=== PATIENT | male | born 1990 | race Two or more races ===

== ENCOUNTER 2017-01-27 12:35 | Emergency (ER) | payer OTHER ==
[2017-01-27 12:40] VITALS: BP 131/87; PULSE 88; TEMP 98.2; BMI 32.5
[2017-01-27] MEDS ORDERED: ACETAMINOPHEN 1000 MG/100 ML VIAL (NON FORMULARY) IVPB ONE (12:49)
[2017-01-27] MEDS ORDERED: SODIUM CHLORIDE 1,000 ML IV STA (12:49)
[2017-01-27] MEDS ORDERED: METOCLOPRAMIDE HCL INJECTION 10 MG/2 ML VIAL IVPB ONE (12:49)
--- NOTE | 2017-01-27 12:53 | PDOC ---
History of Present Illness - General Chief Complaint: Headache Stated Complaint: HEAD PRESSURE & LIGHT HEADED Time Seen by Provider: 01/27/17 12:36 History Source: Patient Exam Limitations: No Limitations - History of Present Illness Initial Comments: 01/27/17 12:50 26-year-old male with past medical history of migraines presents to the emergency department for headache and lightheadedness. The patient reports feeling tired and fatigued since yesterday and woke up this morning with a gradual tension-like headache particular worsen the posterior. Denies fevers, neck stiffness or pain. Stated headache gradually worsened but is constant. States the difference between this was that he has no photophobia which she typically has with his migraines. Reports some nausea but denies vomiting. Denies any numbness or weakness or gait instability. Patient as of note notices that in the last several episodes this year, patient has had hypoglycemia with his glucose were good on the 50s. However, patient reports good appetite and denies taking any diabetes medications. He denies history of diabetes. His outpatient doctor is aware of it and is following as an outpatient. Past History - Past Medical History Allergies/Adverse Reactions: Allergies Allergy/AdvReac Type Severity Reaction Status Date / Time Cephalosporins Allergy Severe unknown Verified 02/16/15 12:43 Penicillins Allergy Severe unknown Verified 02/16/15 12:43 Home Medications: Ambulatory Orders Acetaminophen [Tylenol] 650 mg PO Q4H PRN #20 tablet 01/27/17 Metoclopramide HCl [Reglan] 10 mg PO Q8H PRN #20 tablet 01/27/17 Asthma: Yes Hypercholesterolemia: Yes (not on meds) - Immunization History Immunization Up to Date: Yes - Suicide/Smoking/Psychosocial Hx Smoking History: Never smoked Have you smoked in the past 12 months: No Hx Alcohol Use: No Drug/Substance Use Hx: No Substance Use Type: None Hx Substance Use Treatment: No Review of Systems - Review of Systems Able to Perform ROS?: Yes Comments:: 01/27/17 12:51 GENERAL/CONSTITUTIONAL: No fever, weakness. HEAD, EYES, EARS, NOSE AND THROAT: No change in vision. No ear pain or discharge. No sore throat. CARDIOVASCULAR: No chest pain or shortness of breath. RESPIRATORY: No cough, wheezing, or hemoptysis. GASTROINTESTINAL: No abdominal pain, nausea, vomiting, diarrhea, or decreased PO intolerance. GENITOURINARY: No dysuria, frequency, or change in urination. MUSCULOSKELETAL: No joint or muscle swelling or pain. No neck or back pain. SKIN: No rash NEUROLOGIC: +headache, nausea. No vertigo, loss of consciousness, or change in strength/sensation. ENDOCRINE: No increased thirst. No abnormal weight change. HEMATOLOGIC/LYMPHATIC: No anemia, easy bleeding, or history of blood clots. ALLERGIC/IMMUNOLOGIC: No hives or skin allergy. *Physical Exam - Vital Signs Last Vital Signs Temp Pulse Resp BP Pulse Ox 98.2 F 88 15 131/87 98 01/27/17 12:36 01/27/17 12:36 01/27/17 12:36 01/27/17 12:36 01/27/17 12:36 - Physical Exam Comments: 01/27/17 12:51 GENERAL: Awake, alert, and fully oriented, in no acute distress. HEAD: No signs of trauma EYES: PERRLA, EOMI, sclera anicteric, conjunctiva clear ENT: Auricles normal inspection, hearing grossly normal, nares patent, oropharynx clear without exudates. NECK: Normal ROM, supple, no lymphadenopathy, JVD, or masses LUNGS: Breath sounds equal, clear to auscultation bilaterally. No wheezes, and no crackles HEART: Regular rate and rhythm, normal S1 and S2, no murmurs, rubs or gallops ABDOMEN: Soft, nontender, normoactive bowel sounds. No guarding, no rebound. No masses EXTREMITIES: Normal range of motion, no edema. No clubbing or cyanosis. No cords, erythema, or tenderness NEUROLOGICAL: Cranial nerves II through XII intact. Normal speech, normal gait. 5/5 strength upper and lower extremities. sensation intact throughout. FTN WNL. No dysmetria. SKIN: Warm, Dry, normal turgor, no rashes or lesions noted. ED Treatment Course - LABORATORY CBC & Chemistry Diagram: 01/27/17 12:50 01/27/17 12:50 Medical Decision Making - Medical Decision Making 01/27/17 12:53 Vital Signs Temp Pulse Resp BP Pulse Ox 98.2 F 88 15 131/87 98 01/27/17 12:36 01/27/17 12:36 01/27/17 12:36 01/27/17 12:36 01/27/17 12:36 I suspect the patient's headache is likely secondary to migraine. I do not suspect meningitis or SAH at this time. Last migraine episode was 1 month ago. However, given the episodes of hypoglycemia, we'll check some blood work including glucose. Treat symptoms and reassess. 01/27/17 14:04 CBC, BMP 01/27/17 12:50 01/27/17 12:50 CMP Sodium 134 mmol/L (136-145) L 01/27/17 12:50 Potassium 3.9 mmol/L (3.5-5.1) 01/27/17 12:50 Chloride 101 mmol/L (98-107) 01/27/17 12:50 Carbon Dioxide 24 mmol/L (22-28) 01/27/17 12:50 Anion Gap 9 (8-16) 01/27/17 12:50 BUN 10 mg/dl (7-18) 01/27/17 12:50 Creatinine 0.9 mg/dl (0.6-1.3) 01/27/17 12:50 Creat Clearance w eGFR > 60 (>60) 01/27/17 12:50 Random Glucose 83 mg/dl (74-106) 01/27/17 12:50 Calcium 10.4 mg/dl (8.4-10.2) H 01/27/17 12:50 Total Bilirubin 0.7 mg/dl (0.2-1.0) 01/27/17 12:50 AST 34 U/L (10-42) 01/27/17 12:50 ALT 38 U/L (10-40) 01/27/17 12:50 Alkaline Phosphatase 42 U/L (32-92) 01/27/17 12:50 Total Protein 8.2 g/dl (6.4-8.3) 01/27/17 12:50 Albumin 5.6 g/dl (3.5-5.0) H 01/27/17 12:50 Labs reviewed. No acute findings. After IV tylenol and IV reglan, the headache resolved. Likely migraines. Will have patient discharged and follow up with his PMD and neurology. Return precautions given. I discussed the physical exam findings, ancillary test results and final diagnoses with the patient. I answered all of the patient's questions. The patient was satisfied with the care received and felt comfortable with the discharge plan and treatment plan. The patient will call their primary care physician within 24 hours to arrange follow-up and will return to the Emergency Department with any new, persistant or worsening symptoms. *DC/Admit/Observation/Transfer Diagnosis at time of Disposition: Migraine Qualifiers: Migraine type: unspecified Status migrainosus presence: without status migrainosus Intractability: not intractable Qualified Code(s): G43.909 - Migraine, unspecified, not intractable, without status migrainosus - Discharge Dispostion Disposition: HOME Condition at time of disposition: Good Admit: No - Prescriptions Prescriptions: Metoclopramide HCl [Reglan] 10 mg PO Q8H PRN #20 tablet PRN Reason: Nausea/Migraine Acetaminophen [Tylenol] 650 mg PO Q4H PRN #20 tablet PRN Reason: Headache - Referrals Referrals: Bud Lamb MD [Primary Care Provider] - Deniz Mcconnell MD [Staff Physician] - - Patient Instructions Printed Discharge Instructions: DI for Migraine Additional Instructions: Take 650 mg tylenol every 4 hours as needed for headache. For additional relief, take a tablet of reglan every 8 hours as needed. This can also help with nausea. Please drink plenty of fluids and rest. Follow up with your doctor.
[2017-01-27] MEDS ORDERED: ACETAMINOPHEN INJECTION 100 ML IVPB ONE (12:59)
[2017-01-27 13:27] LABS: BASOPHIL 0.7 % (0-2.0); MCHC 34.4 g/dl (32.0-35.9); MEAN CELL VOLUME 84.5 fl (80-96); MEAN PLT VOLUME 8.7 fl (7.5-11.1); NEUTROPHILS 75.5 % (42.8-82.8); PLATELET COUNT 281 K/MM3 (134-434); RDW 12.2 % (11.9-15.9); WHITE BLOOD COUNT 10.3 K/mm3 (4.0-10.8)
[2017-01-27 13:48] LABS: ALBUMIN 5.6 g/dl (3.5-5.0); ALK PHOS 42 U/L (32-92); ANION GAP 9 (8-16); BILIRUBIN,TOTAL 0.7 mg/dl (0.2-1.0); CALCIUM 10.4 mg/dl (8.4-10.2); CO2 24 mmol/L (22-28); CREATININE 0.9 mg/dl (0.6-1.3); GLUCOSE,RANDOM 83 mg/dl (74-106); SGOT/AST 34 U/L (10-42); SGPT/ALT 38 U/L (10-40); TOT PROT 8.2 g/dl (6.4-8.3)
== END 2017-01-27 14:13 | disposition home or self-care (01) ==
LOC: FER 12:35 → SUPCPDRO 12:35 → FER 14:13
PROC: 3E033NZ Introduction of Analgesics, Hypnotics, Sedatives into Peripheral Vein, Percutaneous Approach (ICD-10-PCS; principal; 2017-01-27)
PROC: 3E033GC Introduction of Other Therapeutic Substance into Peripheral Vein, Percutaneous Approach (ICD-10-PCS; 2017-01-27)
PROC: 3E0337Z Introduction of Electrolytic and Water Balance Substance into Peripheral Vein, Percutaneous Approach (ICD-10-PCS; 2017-01-27)
DX: G43.909 Migraine, unspecified, not intractable, without status migrainosus (principal)
CPT/HCPCS: 36415; 80053; 85025; 99283-25

== ENCOUNTER 2017-09-16 07:41 | Emergency (ER) | payer BC, OTHER ==
[2017-09-16] MEDS ORDERED: IBUPROFEN 600 MG TABLET (FP) PO ONE (07:43)
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
[2017-09-16 07:46] VITALS: BP 139/95; PULSE 76; TEMP 98.2; BMI 32.5
== END 2017-09-16 08:49 | disposition home or self-care (01) ==
LOC: FER 07:41
DX: S93.401A Sprain of unspecified ligament of right ankle, initial encounter (principal); M25.532 Pain in left wrist; X58.XXXA Exposure to other specified factors, initial encounter; Y93.89 Activity, other specified; Y92.9 Unspecified place or not applicable
CPT/HCPCS: 73110-TC-LR-FY; 73610-TC-RT-FY; 73630-TC-RT-FY; 99282-25

== ENCOUNTER 2017-11-24 08:16 | Emergency (ER) | payer BC ==
[2017-11-24 08:31] VITALS: BMI 33.3
--- NOTE | 2017-11-24 08:53 | PDOC ---
Attending Attestation - Resident Resident Name: Robyn Ha - ED Attending Attestation I have performed the following: I have examined & evaluated the patient, The case was reviewed & discussed with the resident, I agree w/resident's findings & plan, Exceptions are as noted - HPI HPI: 11/24/17 08:52 27 yo M c/ past medical hx tension headache. The patient was as playing soccer and turned his left of head suddenly to head butt a ball. He had felt a "popping" sensation and soon felt some mild numbness of the right side of face. [place] some mildly dizzy. But never endorsed chest pain, SOB, or any upper or lower extremities numbness/ weakness. Came into the ER for an evaluation. - Physicial Exam PE: 11/24/17 09:51 Vital Signs Temp Pulse Resp BP Pulse Ox 98.0 F 84 16 127/74 96 11/24/17 08:29 11/24/17 08:29 11/24/17 08:29 11/24/17 08:29 11/24/17 08:29 GENERAL: Awake, alert, and fully oriented, in no acute distress HEAD: No signs of trauma EYES: PERRLA, EOMI, sclera anicteric, conjunctiva clear ENT: Auricles normal inspection, hearing grossly normal, nares patent, NECK: Normal ROM, supple. No c-spine tenderness. LUNGS: Breath sounds equal, clear to auscultation bilaterally. No wheezes, and no crackles HEART: Regular rate and rhythm, normal S1 and S2, no murmurs, rubs or gallops EXTREMITIES: Normal range of motion, no edema. No clubbing or cyanosis. No cords, erythema, or tenderness NEUROLOGICAL: Cranial nerves II through XII intact. 5/5 strength upper and lower extremities. no pronator drift. no dysmetria, no dysarthria. Rapid alternating normal. Heel to vazquez normal. SKIN: Warm, Dry, normal turgor, no rashes or lesions noted. - Medical Decision Making 11/24/17 09:53 27 year old male presents with dizziness after neck pain. Differential includes vertebral dissection, c-spine injury, neck spasm, musculoskeletal pain. I agree with plan for head CT, c-spine and CTA neck. Pain control and reassess. 11/24/17 10:48 CBC, BMP 11/24/17 09:00 11/24/17 09:00 CMP Sodium 137 mmol/L (136-145) 11/24/17 09:00 Potassium 4.5 mmol/L (3.5-5.1) 11/24/17 09:00 Chloride 104 mmol/L (98-107) 11/24/17 09:00 Carbon Dioxide 28 mmol/L (21-32) 11/24/17 09:00 Anion Gap 5 (8-16) L 11/24/17 09:00 BUN 15 mg/dL (7-18) 11/24/17 09:00 Creatinine 1.0 mg/dL (0.7-1.3) 11/24/17 09:00 Creat Clearance w eGFR > 60 (>60) 11/24/17 09:00 Random Glucose 84 mg/dL (74-106) 11/24/17 09:00 Calcium 9.4 mg/dL (8.5-10.1) 11/24/17 09:00 Total Bilirubin 0.5 mg/dL (0.2-1.0) 11/24/17 09:00 AST 57 U/L (15-37) H D 11/24/17 09:00 ALT 119 U/L (12-78) H D 11/24/17 09:00 Alkaline Phosphatase 56 U/L (45-117) 11/24/17 09:00 Total Protein 7.5 g/dl (6.4-8.2) 11/24/17 09:00 Albumin 4.5 g/dl (3.4-5.0) 11/24/17 09:00 11/24/17 13:36 CT head and C-spine negative for acute findings. CTA negative for acute findings. Pt reports feeling better after the medications. LFTs noted. Will give a copy of the results and inform the patient to follow up with the PMD.
--- NOTE | 2017-11-24 09:02 | PDOC ---
History of Present Illness - General Chief Complaint: Weakness Stated Complaint: chest tightness/numbness Time Seen by Provider: 11/24/17 08:40 History Source: Patient - History of Present Illness Initial Comments: 11/24/17 08:55 Pt is a 27yo male with PMH of migraine/tension headaches presenting to ED with parents after he felt a "snap" in the left side of his neck while playing soccer this morning. Pt says he turned his head sharply to the left, felt the snap and felt like the right side of his face went numb. He also admitted to some dizziness and chest tightness, but the tightness has since dissipated. He is also complaining of some sinus pressure around the nose associated with congestion. He denies trauma, injury, LOC, falling down, SOB, cough weakness. He has been going to physical therapy for his neck pain that he gets when he gets headaches. PCP: Dr. Junior PMH: see HPI PSH: none Allergies: nka Social: smokes hookah. Denies alcohol, tobacco, illicit drug use. 11/24/17 11:45 Past History - Past Medical History Allergies/Adverse Reactions: Allergies Allergy/AdvReac Type Severity Reaction Status Date / Time Cephalosporins Allergy Severe unknown Verified 11/24/17 08:30 Penicillins Allergy Severe unknown Verified 11/24/17 08:30 Home Medications: Ambulatory Orders NK [No Known Home Medication] 09/16/17 Asthma: Yes COPD: No Hypercholesterolemia: Yes (not on meds) - Immunization History Immunization Up to Date: Yes - Suicide/Smoking/Psychosocial Hx Smoking History: Never smoked Have you smoked in the past 12 months: No Information on smoking cessation initiated: No Hx Alcohol Use: No Drug/Substance Use Hx: No Substance Use Type: None Hx Substance Use Treatment: No Review of Systems - Review of Systems Constitutional: No: Chills, Fever, Weakness HEENTM: Yes: Nose Congestion. No: Blurred Vision, Recent change in vision, Double Vision, Nose Bleeding Respiratory: No: Cough, Shortness of Breath, Wheezing Cardiac (ROS): Yes: Chest Tightness. No: Chest Pain, Edema, Syncope ABD/GI: No: Constipated, Diarrhea, Nausea, Vomiting, Abdominal cramping : No: Flank Pain Musculoskeletal: Yes: Neck Pain. No: Back Pain, Joint Pain, Joint Swelling, Muscle Pain, Muscle Weakness, Joint Stiffness Neurological: Yes: Numbness (R side of face), Dizziness. No: Headache, Paresthesia, Tingling, Weakness, Ataxia *Physical Exam - Vital Signs Last Vital Signs Temp Pulse Resp BP Pulse Ox 98.0 F 84 16 127/74 96 11/24/17 08:29 11/24/17 08:29 11/24/17 08:29 11/24/17 08:29 11/24/17 08:29 - Physical Exam General Appearance: Yes: Nourished. No: Apparent Distress (laying down in bed comfortably with parents at bedside) HEENT: positive: EOMI, TAN, Normal Voice, Pharynx Normal, Hearing Grossly Normal. negative: Pharyngeal Erythema, Tonsillar Exudate, Tonsillar Erythema, Hearing Decreased, Lesions, Bowser Neck: positive: Trachea midline, Supple. negative: Tender, Rigid, Carotid bruit , Decreased range of motion Respiratory/Chest: positive: Lungs Clear, Normal Breath Sounds. negative: Crackles, Rales, Rhonchi, Wheezing Cardiovascular: positive: Regular Rhythm, Regular Rate, S1, S2. negative: Edema , JVD, Murmur Vascular Pulses: Carotid (R): 2+, Carotid (L): 2+ Gastrointestinal/Abdominal: positive: Normal Bowel Sounds, Soft. negative: Tender Musculoskeletal: negative: CVA Tenderness, Decreased Range of Motion Extremity: positive: Normal Capillary Refill, Normal Range of Motion. negative : Swelling, Calf Tenderness, Erythema Integumentary: positive: Normal Color, Dry, Warm Neurologic: positive: fuel island attendant II-XII NML intact, Fully Oriented, Alert, Normal Mood/ Affect, Normal Response, Motor Strength 5/5. negative: Numbness Deep Tendon Reflexes: Knee (L): 2+, Knee (R): 2+, Bicep (L): 2+, Bicep (R): 2+ ED Treatment Course - LABORATORY CBC & Chemistry Diagram: 11/24/17 09:00 11/24/17 09:00 Medical Decision Making - Medical Decision Making 11/24/17 09:59 Patient is a 27 year old male with PMH of tension/migraine headaches presenting to ED with complaints of R side facial numbness and dizziness after turning his head sharply while playing soccer. DDX: vertebral dissection, spinal cord injury, vertebral injury/fracture, muscle sprain Because pt felt a snapping sensation and had been getting neck massages in the past month, vertebral artery dissection needed to be ruled out. On physical exam, patient had full sensation bilaterally, 5/5 motor strength, 2 + reflexes and was ambulatory; concern for spinal cord injury. CT head/cervical spine and CTA neck done to r/o vertebral artery dissection and to look for any fractures. CT head/cervical spine did not show any abnormalities or fractures and CTA did not show dissection of vertebral arteries or carotid arteries, or carotid artery stenosis. Patient was given 1L fluids and reglan/benadryl for headache. Patient reported feeling much better after medication. LFTs were slightly elevated, however pt was aware of this because he has fatty liver. Patient felt better and did not want any outpatient medications or another dose of Toradol. Patient's vitals were stable, he was not in any pain and was ambulatory. Patient and family agreed with plan to be discharged home and was given strict return precautions. Patient verbalized understanding. *DC/Admit/Observation/Transfer Diagnosis at time of Disposition: Neck and shoulder pain - Discharge Dispostion Disposition: HOME Condition at time of disposition: Improved - Referrals Referrals: Aram Junior MD [Primary Care Provider] - - Patient Instructions Printed Discharge Instructions: DI for Cervical Muscle Strain Additional Instructions: You were seen here today because you were having neck pain and numbness on the right side of your face after you turned your neck while playing soccer. We did some blood work and we did a scan of your head and neck. There is some slight abnormality in the liver enzymes, but everything else is normal. The most likely cause of your symptoms is muscle strain. I recommend that you avoid playing aggressive sports, try not to strain your neck. You can take ibuprofen for your headaches. Please follow up with your PCP about the liver function tests, the chronic headaches and any other health problems you are concerned about. Please come back to the ED if: headaches become worse, you experience severe neck pain, if you lose consciousness/pass out, if you continue to feel dizzy, or if any new concerning symptom develops. Thank you - Post Discharge Activity
[2017-11-24 09:15] LABS: BASO % 0.9 % (0-2.0); EOS % 2.8 % (0-4.5); HEMATOCRIT 40.4 % (35.4-49); HEMOGLOBIN 14.2 GM/dL (11.7-16.9); LYMPH % 23.1 % (8-40); MCHC 35.2 g/dl (32.0-35.9); MEAN CELL VOLUME 82.2 fl (80-96); MEAN PLT VOLUME 7.8 fl (7.5-11.1); MONO % 7.7 % (3.8-10.2); NEUT % 65.5 % (42.8-82.8); PLATELET COUNT 211 K/MM3 (134-434); RBC 4.91 M/mm3 (4.00-5.60); RDW 13.1 % (11.9-15.9); WHITE BLOOD COUNT 5.4 K/mm3 (4.0-10.0)
[2017-11-24] MEDS ORDERED: SODIUM CHLORIDE 1,000 ML IV STA (09:19)
[2017-11-24 09:40] LABS: ALBUMIN 4.5 g/dl (3.4-5.0); ANION GAP 5 (8-16); BILIRUBIN,TOTAL 0.5 mg/dL (0.2-1.0); BLOOD UREA NITROGEN 15 mg/dL (7-18); CALCIUM 9.4 mg/dL (8.5-10.1); CHLORIDE 104 mmol/L (98-107); CO2 28 mmol/L (21-32); GLUCOSE,RANDOM 84 mg/dL (74-106); POTASSIUM 4.5 mmol/L (3.5-5.1); SGOT/AST 57 U/L (15-37); SGPT/ALT 119 U/L (12-78); SODIUM 137 mmol/L (136-145)
[2017-11-24 09:41] LABS: ALK PHOS 56 U/L (45-117); TOT PROT 7.5 g/dl (6.4-8.2)
[2017-11-24 09:48] LABS: INR 1.17 (0.82-1.09); PROTHROMBIN TIME (PATIENT) 13.2 SEC (9.7-13.0)
[2017-11-24 09:51] LABS: ACTIVATED PTT 26.4 SECONDS (25.2-36.5)
[2017-11-24] MEDS ORDERED: ACETAMINOPHEN 1000 MG/100 ML VIAL (NON FORMULARY) IVPB ONE ×2 (09:54→10:39)
[2017-11-24] MEDS ORDERED: METOCLOPRAMIDE HCL INJECTION 10 MG/2 ML VIAL IVPUSH ONE (10:39)
[2017-11-24] MEDS ORDERED: METOCLOPRAMIDE HCL INJECTION 10 MG/2 ML VIAL ONE (10:55)
[2017-11-24] MEDS ORDERED: ACETAMINOPHEN INJECTION 100 ML IVPB ONE (10:55)
[2017-11-24] MEDS ORDERED: KETOROLAC TROMETHAMINE 30 MG/1 ML VIAL IVPUSH ONE (13:37)
[2017-11-24 14:08] VITALS: BP 127/64; PULSE 78; TEMP 98.1
--- NOTE | 2017-11-24 15:16 | EKG ---
Test Reason : Blood Pressure : / mmHG Vent. Rate : 086 BPM Atrial Rate : 086 BPM P-R Int : 190 ms QRS Dur : 098 ms QT Int : 384 ms P-R-T Axes : 026 066 015 degrees QTc Int : 459 ms NORMAL SINUS RHYTHM NORMAL ECG WHEN COMPARED WITH ECG OF 30-JUN-2013 09:51, NONSPECIFIC T WAVE ABNORMALITY NOW EVIDENT IN LATERAL LEADS Confirmed by EMILY SWEENEY, GLORIA ([id number]) on 11/24/2017 3:16:45 PM Referred By: Confirmed By:GLORIA DIAZ MD
== END 2017-11-24 14:07 | disposition home or self-care (01) ==
LOC: JER 08:16
PROC: 3E0337Z Introduction of Electrolytic and Water Balance Substance into Peripheral Vein, Percutaneous Approach (ICD-10-PCS; principal; 2017-11-24)
PROC: 3E033NZ Introduction of Analgesics, Hypnotics, Sedatives into Peripheral Vein, Percutaneous Approach (ICD-10-PCS; 2017-11-24)
PROC: 3E033GC Introduction of Other Therapeutic Substance into Peripheral Vein, Percutaneous Approach (ICD-10-PCS; 2017-11-24)
PROC: 3E033GC Introduction of Other Therapeutic Substance into Peripheral Vein, Percutaneous Approach (ICD-10-PCS; 2017-11-24)
DX: S16.1XXA Strain of muscle, fascia and tendon at neck level, initial encounter (principal); R51 Headache; X50.0XXA Overexertion from strenuous movement or load, initial encounter; Y93.66 Activity, soccer; Y92.322 Soccer field as the place of occurrence of the external cause; Y99.8 Other external cause status; E78.00 Pure hypercholesterolemia, unspecified; J45.909 Unspecified asthma, uncomplicated
CPT/HCPCS: 36415; 70450-TC; 70498-TC; 72125-TC; 80053; 85025; 85610; 85730; 86850; 86900; 86901; 93005; 93010; 99285-25; J0131; J7030

== ENCOUNTER 2018-05-15 07:40 | Emergency (ER) | payer BC ==
[2018-05-15 08:02] VITALS: BP 149/93; PULSE 76; TEMP 98.5; BMI 32.5
--- NOTE | 2018-05-15 08:29 | PDOC ---
History of Present Illness - General Chief Complaint: Pain, Acute Stated Complaint: ABDOMINAL PAIN Time Seen by Provider: 05/15/18 07:59 History Source: Patient Exam Limitations: Clinical Condition - History of Present Illness Initial Comments: 05/15/18 08:24 Patient with a past medical history of chronic constipation present with complaint of worsening epigastric and right upper quadrant pain which has been intermittent since yesterday. Patient reported he have history of abdominal pains and being followed by GI. Patient reports he had abdominal CT done a month ago by GI which only showed a fatty liver. Patient reported his pain schedule for abdominal MRI which he is waiting for insurance approval. Patient reported having endoscopy and colonoscopy done over a month ago with normal findings. Patient reported increased pain to epigastric area when he gets up from laying down. Patient denies nausea or vomiting. Patient denies any other symptoms.Patient reported last bowel movement this morning of normal caliber. Timing/Duration: 24 hours Past History - Past Medical History Allergies/Adverse Reactions: Allergies Allergy/AdvReac Type Severity Reaction Status Date / Time Cephalosporins Allergy Severe unknown Verified 05/15/18 07:58 Penicillins Allergy Severe unknown Verified 05/15/18 07:58 Home Medications: Ambulatory Orders Ibuprofen 600 mg PO Q6H PRN #30 tablet 05/05/18 Docusate Sodium [Colace] 100 mg PO BID 5 Days #10 capsule 05/15/18 Famotidine [Pepcid] 20 mg PO DAILY #10 tablet 05/15/18 Mag Hydrox/Aluminum Hyd/Simeth [Maalox Advanced Suspension] 30 ml PO Q8H PRN # 300 ml 05/15/18 Asthma: Yes COPD: No Hypercholesterolemia: Yes Liver Disease: Yes (FATTY LIVER) - Immunization History Immunization Up to Date: Yes - Suicide/Smoking/Psychosocial Hx Smoking History: Never smoked Have you smoked in the past 12 months: No Hx Alcohol Use: No Drug/Substance Use Hx: No Substance Use Type: None Hx Substance Use Treatment: No Review of Systems - Review of Systems Able to Perform ROS?: Yes Is the patient limited Mongolian proficient: No Constitutional: No: Chills, Fever HEENTM: No: Symptoms Reported Respiratory: No: Symptoms reported Cardiac (ROS): No: Symptoms Reported ABD/GI: Yes: See HPI, Constipated, Abdominal cramping (epigastric and RUQ). No : Abdominal Distended, Abd. Pain w/ defecation, Diarrhea, Difficulty Swallowing , Nausea, Poor Appetite, Poor Fluid Intake, Rectal Bleeding, Vomiting, Indigestion : No: Discharge, Frequency, Flank Pain, Hematuria, Urgency All Other Systems: Reviewed and Negative *Physical Exam - Vital Signs Last Vital Signs Temp Pulse Resp BP Pulse Ox 98.5 F 76 16 149/93 99 05/15/18 07:58 05/15/18 07:58 05/15/18 07:58 05/15/18 07:58 05/15/18 07:58 - Physical Exam Comments: 05/15/18 08:28 GENERAL: Well developed, well nourished. Awake and alert. No acute distress. HEENT: Normocephalic, atraumatic. PERRLA, EOMI. No conjunctival pallor. Sclera are non-icteric. Moist mucous membranes. Oropharynx is clear. NECK: Supple. Full ROM. CARDIOVASCULAR: Regular rate and rhythm. No murmurs, rubs, or gallops. Distal pulses are 2+ and symmetric. PULMONARY: No evidence of respiratory distress. Lungs clear to auscultation bilaterally. No wheezing, rales or rhonchi. ABDOMINAL: Moderate tenderness to palpation to epigastric and right upper quadrant.Soft. Non-distended. No rebound or guarding. No organomegaly. Normoactive bowel sounds. MUSCULOSKELETAL Normal range of motion at all joints. SKIN: Warm and dry. Normal capillary refill. No rashes. No jaundice. NEUROLOGICAL: Alert, awake, appropriate. Gait is normal without ataxia. PSYCHIATRIC: Cooperative. Good eye contact. Appropriate mood General Appearance: Yes: Nourished, Appropriately Dressed. No: Apparent Distress Moderate Sedation - Procedure Monitoring Vital Signs: Procedure Monitoring Vital Signs Temperature 98.5 F 05/15/18 07:58 Pulse Rate 76 05/15/18 07:58 Respiratory Rate 16 05/15/18 07:58 Blood Pressure 149/93 05/15/18 07:58 O2 Sat by Pulse Oximetry (%) 99 05/15/18 07:58 ED Treatment Course - LABORATORY CBC & Chemistry Diagram: 05/15/18 08:05 05/15/18 08:20 Medical Decision Making - Medical Decision Making 05/15/18 08:29 Patient with history of constipation's present with complaint of worsening epigastric and right upper quadrant pain which has been intermittent since yesterday. Patient reported having similar episode in the past month but not this severe. Patient had workup done by GI a month ago with no findings in his pain scheduled for abdominal MRI pending insurance approval. Patient denies nausea or vomiting or fever. Exam significant for moderate tenderness to epigastric and right upper quadrant without rebound or guarding. Normal bowel sounds diffusely. CBC, CMP, lipase and amylase labs ordered. IV fluid with normal saline bolus ordered. Pepcid 20 mg IV ordered epigastric pain. Will consider repeat abdominal CT based on lab results. 05/15/18 09:10 CBC shows no elevated. Chemistry lab shows elevated ALT and AST which could be attributed to patient's history of fatty liver otherwise unremarkable chemistry with no normal lipase and amylase. 05/15/18 09:19 Patient reported improved abdominal pain with Pepcid IV and Maalox by mouth and IV fluids. Patient be discharged home on Pepcid and Maalox with GI follow-up as soon as possible. *DC/Admit/Observation/Transfer Diagnosis at time of Disposition: Abdominal pain Qualifiers: Abdominal location: upper abdomen, unspecified Qualified Code(s): R10.10 - Upper abdominal pain, unspecified Constipation Qualifiers: Constipation type: chronic idiopathic constipation Qualified Code(s): K59.04 - Chronic idiopathic constipation - Discharge Dispostion Disposition: HOME Condition at time of disposition: Stable Decision to Admit order: No - Prescriptions Prescriptions: Docusate Sodium [Colace] 100 mg PO BID 5 Days #10 capsule Famotidine [Pepcid] 20 mg PO DAILY #10 tablet Mag Hydrox/Aluminum Hyd/Simeth [Maalox Advanced Suspension] 30 ml PO Q8H PRN # 300 ml PRN Reason: abdominal discomfort - Referrals Referrals: Aram Junior MD [Primary Care Provider] - - Patient Instructions Printed Discharge Instructions: DI for Abdominal Pain-Adult Additional Instructions: Take medications as prescribed. Increase fluid intake. Follow-up with your GI doctor as soon as possible. Come back to emergency room if worsening abdominal pain with vomiting or fever. - Post Discharge Activity
[2018-05-15] MEDS ORDERED: SODIUM CHLORIDE 500 ML IV STA (08:32)
[2018-05-15] MEDS ORDERED: FAMOTIDINE 20 MG/50 ML IVPB 20 MG/50 ML MG IVPB ONE ×2 (08:32→08:47)
[2018-05-15 08:44] LABS: BASO % 0.6 % (0-2.0); EOS % 3.5 % (0-4.5); HEMATOCRIT 46.3 % (35.4-49); HEMOGLOBIN 16.6 GM/dL (11.7-16.9); LYMPH % 21.9 % (8-40); MCH 29.6 pg (25.7-33.7); MCHC 35.9 g/dl (32.0-35.9); MEAN CELL VOLUME 82.5 fl (80-96); MEAN PLT VOLUME 7.9 fl (7.5-11.1); MONO % 6.1 % (3.8-10.2); NEUT % 67.9 % (42.8-82.8); PLATELET COUNT 272 K/MM3 (134-434); RBC 5.61 M/mm3 (4.00-5.60); RDW 13.3 % (11.9-15.9); WHITE BLOOD COUNT 9.6 K/mm3 (4.0-10.0)
[2018-05-15] MEDS ORDERED: MAG HYDROX/AL HYDROX/SIMETH 30 ML UNIT-DOSE CUP PO ONE (08:46)
[2018-05-15] MEDS ORDERED: MAG HYDROX/AL HYDROX/SIMETH 30 ML UNIT-DOSE CUP ONE (08:56)
[2018-05-15 09:02] LABS: ALBUMIN 4.8 g/dl (3.4-5.0); ALK PHOS 47 U/L (45-117); AMYLASE 44 U/L (25-115); ANION GAP 6 MMOL/L (8-16); BLOOD UREA NITROGEN 11 mg/dL (7-18); CALCIUM 9.6 mg/dL (8.5-10.1); CHLORIDE 101 mmol/L (98-107); CO2 27 mmol/L (21-32); CREATININE 0.9 mg/dL (0.55-1.3); GLUCOSE,RANDOM 74 mg/dL (74-106); LIPASE 126 U/L (73-393); POTASSIUM 4.5 mmol/L (3.5-5.1); SGOT/AST 80 U/L (15-37); SGPT/ALT 106 U/L (13-61); SODIUM 135 mmol/L (136-145); TOT PROT 8.5 g/dl (6.4-8.2)
== END 2018-05-15 09:36 | disposition home or self-care (01) ==
LOC: JER 07:40
PROC: 3E033GC Introduction of Other Therapeutic Substance into Peripheral Vein, Percutaneous Approach (ICD-10-PCS; principal; 2018-05-15)
DX: K59.04 Chronic idiopathic constipation (principal); E78.00 Pure hypercholesterolemia, unspecified; J45.909 Unspecified asthma, uncomplicated; K76.0 Fatty (change of) liver, not elsewhere classified
CPT/HCPCS: 36415; 80053; 82150; 83690; 85025; 99282-25

== ENCOUNTER 2019-07-11 09:46 | Emergency (ER) | payer BC ==
[2019-07-11 09:57] VITALS: BP 143/85; PULSE 79; TEMP 98.8; BMI 31.1
[2019-07-11] MEDS ORDERED: SODIUM CHLORIDE FOR INHALATION 3 ML VIAL.NEB IH ONE (10:41)
[2019-07-11] MEDS ORDERED: ALBUTEROL SO4 2.5/IPRATROPIUM 0.5 INH SOL 3 ML VIAL.NEB. NEB ONE ×2 (10:41→10:43)
--- NOTE | 2019-07-11 10:56 | PDOC ---
History of Present Illness - General Chief Complaint: Respiratory Stated Complaint: COLD SYMPTOMS Time Seen by Provider: 07/11/19 09:58 History Source: Patient Exam Limitations: Clinical Condition - History of Present Illness Initial Comments: 07/11/19 10:53 Patient with past medical history of childhood asthma presented with complaint of persistent cough with yellow sputum, nasal congestion, intermittent shortness of breath and chest tightness for 2 days. Denies fever, chills, nausea,, sore throat. Patient has not taken anything for symptoms. Denies recent travel or sick contact. Is this a multiple visit Asthma Patient?: No Timing/Duration: 24 hours Past History - Past Medical History Allergies/Adverse Reactions: Allergies Allergy/AdvReac Type Severity Reaction Status Date / Time Cephalosporins Allergy Severe unknown Verified 07/11/19 09:54 Penicillins Allergy Severe unknown Verified 07/11/19 09:54 Home Medications: Ambulatory Orders Ibuprofen 600 mg PO Q6H PRN #30 tablet 05/05/18 Docusate Sodium [Colace] 100 mg PO BID 5 Days #10 capsule 05/15/18 Famotidine [Pepcid] 20 mg PO DAILY #10 tablet 05/15/18 Mag Hydrox/Aluminum Hyd/Simeth [Maalox Advanced Suspension] 30 ml PO Q8H PRN #300 ml 05/15/18 Albuterol Sulfate Inhaler - [Ventolin Hfa Inhaler -] 2 inh PO Q6H PRN #1 inh 07/11/19 Benzonatate [Tessalon Pearls -] 100 mg PO Q8H PRN #21 capsule 07/11/19 Ipratropium [place] 2 spray NS BID PRN 5 Days #1 spray 07/11/19 Montelukast Na [Singulair -] 10 mg PO DAILY #7 tablet 07/11/19 Asthma: Yes COPD: No Hypercholesterolemia: Yes Liver Disease: Yes (FATTY LIVER) - Immunization History Immunization Up to Date: Yes - Psycho Social/Smoking Cessation Hx Smoking History: Current some day smoker Have you smoked in the past 12 months: No Information on smoking cessation initiated: No Hx Alcohol Use: No Drug/Substance Use Hx: No Substance Use Type: None Hx Substance Use Treatment: No Review of Systems - Review of Systems Able to Perform ROS?: Yes Is the patient limited Thai proficient: No Constitutional: No: Chills, Fever, Malaise HEENTM: Yes: Symptoms Reported, See HPI, Nose Congestion. No: Eye Pain, Blurred Vision, Tearing, Recent change in vision, Double Vision, Cataracts, Ear Pain, Ocular Prothesis, Ear Discharge, Nose Pain, Tinnitus, Nose Bleeding, Hearing Loss, Throat Pain, Throat Swelling, Mouth Pain, Dental Problems, Difficulty Swallowing, Mouth Swelling, Other Respiratory: Yes: Symptoms reported, See HPI, Cough, Shortness of Breath (intermittent), Wheezing. No: Orthopnea, SOB with Exertion, SOB at Rest, Stridor, Productive cough, Hemoptysis, Other Cardiac (ROS): No: Symptoms Reported, See HPI, Chest Pain, Edema, Irregular Heart Rate, Lightheadedness, Palpitations, Syncope, Chest Tightness, Other ABD/GI: No: Symptoms Reported, See HPI, Nausea, Vomiting All Other Systems: Reviewed and Negative *Physical Exam - Vital Signs Last Vital Signs Temp Pulse Resp BP Pulse Ox 98.8 F 79 18 143/85 99 07/11/19 09:54 07/11/19 09:54 07/11/19 09:54 07/11/19 09:54 07/11/19 09:54 - Physical Exam 07/11/19 10:55 GENERAL: Well developed, well nourished. Awake and alert. No acute distress. HEENT: Bilateral nasal congestion. Normocephalic, atraumatic. PERRLA, EOMI. No conjunctival pallor. Sclera are non-icteric. Moist mucous membranes. Oropharynx is clear. NECK: Supple. Full ROM. CARDIOVASCULAR: Regular rate and rhythm. No murmurs, rubs, or gallops. Distal pulses are 2+ and symmetric. PULMONARY: No evidence of respiratory distress. Mild expiratory wheeze diffusely. No rales or rhonchi. ABDOMINAL: Soft. Non-tender. Non-distended. No rebound or guarding. No organomegaly. Normoactive bowel sounds. MUSCULOSKELETAL Normal range of motion at all joints. SKIN: Warm and dry. Normal capillary refill. No rashes. No cyanosis. NEUROLOGICAL: Alert, awake, appropriate. Gait is normal without ataxia. PSYCHIATRIC: Cooperative. Good eye contact. Appropriate mood General Appearance: Yes: Nourished, Appropriately Dressed. No: Apparent Distress ED Treatment Course - RADIOLOGY Radiology Studies Ordered: Category Date Time Status CHEST PA & LAT [RAD] Stat Radiology 07/11/19 10:40 Ordered - Medications Given in the ED: ED Medications Discontinued Medications Generic Name Dose Route Start Last Admin Trade Name Freq PRN Reason Stop Dose Admin Albuterol/Ipratropium 2 amp 07/11/19 10:41 07/11/19 10:46 Duoneb - NEB 07/11/19 10:42 2 amp ONCE ONE Administration Sodium Chloride 3 ml 07/11/19 10:41 07/11/19 10:47 Normal Saline For Inhalation - IH 07/11/19 10:42 3 ml ONCE ONE Administration Medical Decision Making - Medical Decision Making 07/11/19 10:54 Patient with past medical history of childhood asthma presented with complaint of persistent cough with yellow sputum, nasal congestion, intermittent shortness of breath and chest tightness for 2 days. Denies fever, chills, nausea,, sore throat. Patient has not taken anything for symptoms. Denies recent travel or sick contact. Exam significant for mild expiratory wheeze with no acute respiratory distress. Normal cardio exam. Patient afebrile. Patient symptoms likely viral URI with asthma exacerbation versus less likely pneumonia. DuoNeb ordered for wheezing. Chest x-ray ordered to rule out acute chest abnormalities or pneumonia 07/11/19 12:27 Chest x-ray shows no acute infiltrate abnormality. Patient symptoms likely URI and stable for discharge on Tessalon Perles as needed for cough and Ventolin inhaler for bronchospasm and Atrovent nasal spray for nasal congestion advised increase fluid with PCP follow-up Discharge - Discharge Information Problems reviewed: Yes Clinical Impression/Diagnosis: URI with cough and congestion, Bronchospasm, acute Condition: Stable Disposition: HOME - Admission No - Additional Discharge Information Prescriptions: Ipratropium [place] 2 spray NS BID PRN 5 Days #1 spray PRN Reason: nasal congestion Montelukast Na [Singulair -] 10 mg PO DAILY #7 tablet Benzonatate [Tessalon Pearls -] 100 mg PO Q8H PRN #21 capsule PRN Reason: Cough Albuterol Sulfate Inhaler - [Ventolin Hfa Inhaler -] 2 inh PO Q6H PRN #1 inh PRN Reason: chest tightness - Follow up/Referral Referrals: Bud Lamb MD [Primary Care Provider] - - Patient Discharge Instructions Patient Printed Discharge Instructions: DI for Viral Upper Respiratory Infection -- Adult Additional Instructions: Your chest x-ray shows no pneumonia or acute infiltrate. Your symptoms likely upper respiratory infection and bronchospasm due to chest tightness. Take prescribed medications prescribed for cough and congestion. Increase fluid intake. Follow-up with your primary care - Post Discharge Activity Work/Back to School Note: Back to Work
== END 2019-07-11 12:25 | disposition home or self-care (01) ==
LOC: JERFT 09:46
PROC: 3E0F7GC Introduction of Other Therapeutic Substance into Respiratory Tract, Via Natural or Artificial Opening (ICD-10-PCS; principal; 2019-07-11)
PROC: 3E0F7GC Introduction of Other Therapeutic Substance into Respiratory Tract, Via Natural or Artificial Opening (ICD-10-PCS; 2019-07-11)
DX: J98.01 Acute bronchospasm (principal); J06.9 Acute upper respiratory infection, unspecified; R05 Cough; Z88.8 Allergy status to other drugs, medicaments and biological substances; Z88.0 Allergy status to penicillin
CPT/HCPCS: 71046-TC-FY; 99283-25